=== PATIENT | female | born 1965 | race African-American/Black ===

== ENCOUNTER 2021-10-07 07:19 | Outpatient (REF) | payer MEDICAID, SELFPAY ==
--- NOTE | ~2021-10-07 | XR_ITS ---
EXAMINATION: XR HAND, RIGHT CLINICAL INFORMATION: Pain in right hand. COMPARISON: None TECHNIQUE: PA, lateral, and oblique views of the right hand. FINDINGS: There is loss of PIP and DIP joint space with periapical spurring 1st metacarpophalangeal joint. No bony erosive changes. The soft tissues are normal. XR/XR hand RT min 3V IMPRESSION: Mild early degenerative changes. No visible acute fracture or dislocation seen.
== END 2021-10-07 07:20 | disposition home or self-care (01) ==
LOC: HO.HOSX 07:19
PROVIDERS: Visit Provider Physician Assistant
DX: M85.641 Other cyst of bone, right hand (principal)
CPT/HCPCS: 20600; 73130; 99202

== ENCOUNTER 2021-11-05 09:59 | Day surgery (SDC) | payer MEDICAID, SELFPAY ==
[2021-11-05 10:19] VITALS: BP 143/81; PULSE 75; RESP 17; TEMP 37.2; O2SAT 97; BMI 41.5
[2021-11-05 10:20] VITALS: BMI 41.5
--- NOTE | 2021-11-05 10:57 | MHC.SHP ---
Pre-Procedural Eval Section A Date of Service: 11/05/21 The patient is an INPATIENT: No Changes since office visit: No Cold of Flu in the past 2 weeks, No New Medical Problems, No Changes in Medication and No Patient answered all questions The History & Physical has been completed within 30 days and I have reviewed it.: Yes Section B Chief Complaint: right thumb mass Allergies: Allergies Allergy/AdvReac Type Severity Reaction Status Date / Time No Known Allergies Allergy Unverified 04/24/20 16:20 Plan I have reviewed the history and physical and performed a pertinent physical examination on my patient. No changes have occurred unless specified.
--- NOTE | 2021-11-05 10:58 | P.OP_ITS ---
Operative Note Operative Note Date of Service: 11/05/21 Narrative: Operative Note Preop diagnosis: 1. Right thumb mass over A1 ld Postop diagnosis: 1. Same Procedure: 1. Right thumb mass excision Surgeon: Kathi Mcdonald MD Anesthesia: local block using 1% lidocaine with epinephrine EBL: Less than 5 mL Tourniquet time: None Findings: A fairly large retinacular cyst was found sitting on the A1 ld. It was filled with clear viscous fluid consistent with a ganglion. Specimens: Right thumb retinacular cyst and viscous fluid Complications: None Disposition: Brought to recovery room in stable condition Plan: Follow-up for 10-14 days for wound check and suture removal Indications: The patient is 56 years old, with a right thumb mass over the A1 ld. The risks and benefits of operative treatment including but not limited to risk of damage to blood vessels, nerves, tendons, infection, persistent pain, persistent symptoms, recurrence or possible need for additional surgery were discussed with the patient and the patient wishes to proceed with surgery. Procedure: Once consent was obtained a local block was performed in the preop area using a combination of 1% lidocaine with epinephrine. The patient was then brought back to the operating suite and placed on the operative table in supine position. A tourniquet was applied to the proximal aspect of the right upper extremity and the limb was prepped and draped in a standard surgical fashion. Once assured that we had a good block, a 1.5 cm oblique incision was made centered over the A1 ld of the right thumb . The incision was made through the skin to the subcutaneous tissues using a #15 blade. Careful dissection was made down to the level of the A1 ld using tenotomy scissors, with care being taken to protect the nearby neurovascular structures. A fairly large retinacular cyst was noted to be sitting on top of the A1 ld. It measured approximately 8 mm in diameter. Soft tissues were carefully dissected off of the cystic mass using tenotomy scissors. The cyst was then dissected off of the A1 ld at which point we open the cyst, and it was full of clear viscous fluid consistent with a ganglion. The cyst was removed and placed on the back table along with the cystic fluid, all to be sent to pathology. In preop hold the patient had also complained of locking and catching in that thumb. A1 ld was noted to be thickened. A longitudinal incision was made in the A1 ld 1st using a #15 blade, then using tenotomy scissors under direct visualization. Following our A1 ld release, we no longer saw any locking or catching of the digit with flexion and extension. Once satisfied with our mass excision and A1 ld release the wound was copiously irrigated with normal saline and hemostasis was obtained with a brief period of local pressure. The skin edges were reapproximated with some 5.0 nylon suture material and a sterile dressing was applied. The patient appears to have tolerated the procedure well and with no compl ications. All digits were well vascularized at the conclusion of the case.
[2021-11-05 11:36] VITALS: BP 164/87; PULSE 63; RESP 16; TEMP 36.6; O2SAT 96
== END 2021-11-05 11:49 | disposition home or self-care (01) ==
PROVIDERS: PCP Internal Medicine; Visit Provider Orthopaedic Surgery
PROC: (CPT 26160; principal; 2021-11-05 13:20)
DX: M67.441 Ganglion, right hand (principal); M24.841 Other specific joint derangements of right hand, not elsewhere classified
CPT/HCPCS: 26160; 26055; 88304; 88305; J0171

== ENCOUNTER 2021-11-18 10:47 | Outpatient (REF) | payer MEDICAID, SELFPAY ==
--- NOTE | ~2021-11-18 | MM_ITS ---
EXAMINATION: MM SCREENING DIGITAL BREAST TOMOSYNTHESIS, BILATERAL CLINICAL INFORMATION: Screening. Asymptomatic. The lifetime risk of breast cancer based on the Tyrer-Cuzick Model is 6%. COMPARISON: Mammography: 01/18/2018, 01/14/2017, 10/04/2014 TECHNIQUE: Digital breast tomosynthesis is performed in both the craniocaudal and mediolateral oblique views along with computer-aided detection (CAD). Synthesized 2D images are generated from the tomosynthesis. Additional bilateral MLO views are provided. FINDINGS: The breasts are almost entirely fatty (ACR BI-RADS breast composition Category a). There are no significant masses, abnormal calcifications, or other abnormalities. Parenchymal pattern is similar to prior studies. Background stromal and fibroglandular densities are stable. There are stable intramammary nodes in the bilateral upper outer quadrant similar to prior studies. The skin contours are smooth. MM/MM tomosynthesis screening BI IMPRESSION: No mammographic evidence of malignancy. ASSESSMENT: BI-RADS 2: Benign RECOMMENDATION: Routine annual mammography screening. This patient's information was entered into a reminder system with a target due date for their next mammogram.
== END 2021-11-18 10:48 | disposition home or self-care (01) ==
LOC: HO.MAMMO 10:47
PROVIDERS: Visit Provider Internal Medicine
DX: Z47.89 Encounter for other orthopedic aftercare (principal); Z12.31 Encounter for screening mammogram for malignant neoplasm of breast
CPT/HCPCS: 77063; 77067; 99212

== ENCOUNTER → 2023-02-24 16:00 | Outpatient (BNV) | payer MEDICAID, SELFPAY | PROVIDERS: PCP Internal Medicine; Visit Provider Radiology Diagnostic Radiology | DX: Z12.31 Encounter for screening mammogram for malignant neoplasm of breast (principal) | CPT/HCPCS: 77063; 77067 ==

== ENCOUNTER 2023-02-24 16:21 | Outpatient (REF) | payer MEDICAID, SELFPAY ==
--- NOTE | ~2023-02-24 | MM_ITS ---
EXAMINATION: MM SCREENING DIGITAL BREAST TOMOSYNTHESIS, BILATERAL CLINICAL INFORMATION: Screening. Asymptomatic. The lifetime risk of breast cancer based on the Tyrer-Cuzick Model is 4.5%. COMPARISON: Mammography: This study is compared with prior exams dating back to 2015. TECHNIQUE: Digital breast tomosynthesis is performed in both the craniocaudal and mediolateral oblique views along with computer-aided detection (CAD). Synthesized 2D images are generated from the tomosynthesis. FINDINGS: The breasts are almost entirely fatty (ACR BI-RADS breast composition Category a). There are no significant masses, abnormal calcifications, or other abnormalities. MM/MM tomosynthesis screening BI IMPRESSION: No mammographic evidence of malignancy. ASSESSMENT: BI-RADS BI-RADS 1 - Negative RECOMMENDATION: Routine annual mammography screening. 1 year F/U This examination should not preclude the clinical evaluation of a suspicious palpable abnormality. This patient's information was entered into a reminder system with a target due date for their next mammogram.
== END 2023-02-24 16:22 | disposition home or self-care (01) ==
LOC: HO.MAMMO 16:21
PROVIDERS: PCP Internal Medicine; Visit Provider Internal Medicine
DX: Z12.31 Encounter for screening mammogram for malignant neoplasm of breast (principal)
CPT/HCPCS: 77063; 77067

== ENCOUNTER 2023-03-22 15:42 | Outpatient (REF) | payer MEDICAID, SELFPAY ==
[2023-03-23 18:13] LABS: CT PCR NOT DETECTED (Not Detect.); NG PCR NOT DETECTED (Not Detect.)
[2023-03-28 20:19] LABS: HPV 16 RNA NOT DETECTED (NOT DETECTED); HPV mRNA E6/E7 rflx Detected (Not Detected)
== END 2023-03-22 15:43 | disposition home or self-care (01) ==
LOC: HO.HHCL 15:42
PROVIDERS: Visit Provider Advanced Practice Midwife
DX: Z12.4 Encounter for screening for malignant neoplasm of cervix (principal); Z11.51 Encounter for screening for human papillomavirus (HPV); Z11.3 Encounter for screening for infections with a predominantly sexual mode of transmission
CPT/HCPCS: 0353U; 87624; 87625; 88142

== ENCOUNTER 2023-05-05 14:35 | Outpatient (REF) | payer MEDICAID, SELFPAY ==
[2023-05-05 16:11] LABS: Estimated Average Glucose 120 mg/dL; Hemoglobin A1c % 5.8 % (<6.0)
[2023-05-05 16:36] LABS: Alanine Aminotransferase 19 U/L (0-31); Albumin Level 4.3 g/dL (3.5-5.0); Alkaline Phosphatase 78 U/L (39-117); Anion Gap 15 (12-20); Aspartate Amino Transferase 19 U/L (5-31); Bilirubin Direct 0.2 mg/dL (0.0-0.5); Bilirubin Total 0.9 mg/dL (0.0-1.0); Blood Urea Nitrogen 10 mg/dL (9-16); Calcium 9.8 mg/dL (8.4-10.2); Carbon Dioxide 25 mmol/L (22-29); Chloride 106 mmol/L (96-108); Estimated Glomerular Filt Rate > 60; Glucose Random 93 mg/dL (60-115); Potassium 4.1 mmol/L (3.3-5.1); Sodium 142 mmol/L (135-145); Total Protein 7.8 g/dL (6.5-8.0)
[2023-05-05 16:50] LABS: TSH reflex Free T4 1.78 uIU/mL (0.32-4.0)
== END 2023-05-05 14:36 | disposition home or self-care (01) ==
LOC: HO.HHCL 14:35
PROVIDERS: Visit Provider Family Medicine
DX: I10 Essential (primary) hypertension (principal); R35.0 Frequency of micturition
CPT/HCPCS: 36415; 80048; 80076; 83036; 84443

== ENCOUNTER 2023-06-03 15:33 | Outpatient (REF) | payer MEDICAID, SELFPAY ==
[2023-06-03 18:15] LABS: C Reactive Protein 1.45 mg/dL (< or = 0.50)
[2023-06-03 18:16] LABS: Rheumatoid Factor < 13.0 IU/mL (<15.0)
[2023-06-03 18:33] LABS: Erythrocyte Sedimentation Rate 18 MM/HR (0-20)
[2023-06-05 11:18] LABS: Cyclic Citrullinated Peptide <16 UNITS
== END 2023-06-03 15:34 | disposition home or self-care (01) ==
LOC: HO.CHCLDS 15:33
PROVIDERS: Visit Provider Internal Medicine
DX: M25.50 Pain in unspecified joint (principal); G89.29 Other chronic pain
CPT/HCPCS: 36415; 85652; 86140; 86200; 86431

== ENCOUNTER 2023-06-29 12:31 | Outpatient (REF) | payer MEDICAID, SELFPAY | END 2023-06-29 12:32 | disposition home or self-care (01) | LOC: HO.LNP 12:31 | PROVIDERS: PCP Internal Medicine; Visit Provider Obstetrics & Gynecology | DX: A63.0 Anogenital (venereal) warts (principal); B97.7 Papillomavirus as the cause of diseases classified elsewhere | CPT/HCPCS: 57454; 88305 ==

== ENCOUNTER 2023-06-29 12:31 | Outpatient (AMB) | payer MEDICAID, SELFPAY ==
--- NOTE | 2023-06-29 12:40 | A.OFFVIS_ITS ---
Intake Vital Signs 06/29/23 12:44 Height 5 ft 3 in Weight 267 lb BMI 47.3 Intake Visit Reasons: New patient Colpo consult [employer] Department Manager Required: No Information Interpreted: non-clinical & clinical Human Resources Leader: Human Resources Leader Present (Aidyn) Allergies No Known Allergies Allergy (Verified 06/29/23 12:44) Is last menstrual period known: No Post menopausal: Yes Patient : No HPI HPI Comments History of Present Illness Details Presenting referred for abnormal Pap smear showing normal Pap with HPV E6/E7 positive, HPV 16/18/45 negative Last co testing was in 11/22 ascus rule out squamous intraepithelial lesion with HPV negative, this was preceded by Pap smear in 2013 showing ascus/HPV negative PFSH Medical History Arthritis Insomnia High blood pressure Surgical History Hx of wisdom tooth extraction Hx of tubal ligation Hx of hand surgery Family History Family/Other Cancer Patient Tobacco Use Status: Never used Tobacco Current occupational status: employed 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 Reproductive History Menstrual Age of Menarche: 13 control method: permanent sterilization Total pregnancies: 5 Full term: 5 Number of Living Children: 5 Date of last pap smear: 03/22/23 (+HPV) History of abnormal pap smear: Yes (2016) Date of Mammogram: 02/24/23 Review of Systems Const All systems reviewed & are unremarkable except as noted in HPI and below Physical Exam Vital Signs: BMI result Body Mass Index 47.3 General: Yes no CVA tenderness External Female Exam: normal external appearance and normal appearance of the urethra Speculum Exam - Vagina: normal appearance of the vagina, normal palpation, no lesions and no masses Speculum Exam - Cervix: normal appearance of the cervix, normal palpation, no lesions, no masses and nontender Bimanual exam- vagina & uterus: normal bimanual exam, normal palpation, uterine size normal, normal palpation, uterine shape normal, No Cervical tenderness present and non-tender Bimanual Exam- Adnexa, other: normal adnexae Back/Spine/Pelvis Back: no CVA tenderness Office Procedures Colposcopy Before the procedure was started discussed with the patient the procedure, alternatives & all the risks associated with the procedure (bleeding, infection, injury to vagina, bladder, vessels, possible need for transfusion with all its risks) then patient signed the consent Pap smear = negative/HPV positive Speculum inserted, acetic acid used Colposcopy done Transformation zone seen, acetowhite lesions identified at 5+7+9+11+12 o?clock, cervical biopsies taken from 5+7+9+11+12 o?clock, ECC done afterwards. Vaginoscopy of the upper vagina showed no evidence of any aceto-white lesions Monsel solution used for hemostasis. The patient tolerated well . At the end the patient was instructed to call if temp>100.4, abdominal pain, n/v, bleeding; The patient was given the following instructions: nothing per vagina, no intercourse or bath tub use. All questions answered the patient verbalized understanding. Instructed the patient to make an appointment in 2 weeks for follow-up This note was generated with a voice recognition program. Some errors may have been overlooked during the review of this note. Sometimes these errors may affect the content or meaning of a given sentence. [id number] of cervix including upper vagina with biopsy and ECC Procedure code (CPT) selection complete Assessment & Plan Assessment & Plan (1) HPV in female: Comment: 11/22 ascus rule out intraepithelial lesion/HPV negative 2013 ascus HPV negative Code(s): B97.7 - Papillomavirus as the cause of diseases classified elsewhere Plan: Discussed with the patient the result of her cotest results, its significance, risk of progression, persistence, and regression. the false positive/negative rate being a screening test, the need for diagnostic test -colposcopy, biopsy, endocervical curettage. Colposcopy done, see procedure note. The patient verbalized understanding and agreed with the plan, all questions answered. Orders: Orders AMB Colposcopy Today B97.7 - Papillomavirus as the cause of diseases classified elsewhere Coding Level of Care Code New Pt Level 3 (51043) Procedure Only Diagnoses HPV in female B97.7 CPT Codes Colposcopy - CPT: 40824-Snrlmohtj of cervix including upper vagina with biopsy and ECC ([id number])
[2023-06-29 12:44] VITALS: BMI 47.3
== END 2023-06-29 13:15 | disposition home or self-care (01) ==
LOC: HO.HWS 12:31
PROVIDERS: PCP Internal Medicine; Visit Provider Obstetrics & Gynecology
DX: R87.810 Cervical high risk human papillomavirus (HPV) DNA test positive (principal)
CPT/HCPCS: 57454

== ENCOUNTER 2023-08-11 14:59 | Outpatient (AMB) | payer MEDICAID, SELFPAY ==
--- NOTE | 2023-08-11 15:05 | MHC.OFFVIS ---
Intake Vital Signs 08/11/23 15:09 Height 5 ft 3 in Weight 265 lb 10.512 oz BMI 47.1 BP 128/70 Blood Pressure Location Rt radial Pulse 63 Pulse Source Pulse Oximeter Pulse Oximetry (%) 99 Oxygen Delivery Method Room Air Intake Visit Reasons: Chronic joint Pain Intake Note: New patient referred by [facility], presents today for chronic joint and elevated inflammatory markers. 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 Reports PT did not help, left me hurting so bad . Acupuncture did not work. Taking oral pain killers. Ibuprofen causing flank pain. Locks Inspector Required: No Accompanied by: Self / Same As Patient Allergies No Known Allergies Allergy (Verified 08/11/23 15:07) HPI HPI Comments History of Present Illness Details Ms. Kiarra Martin, is a 57-year-old female was referred by her primary care for evaluation of joint pain with mildly elevated CRP, negative rheumatoid factor negative CCP and ESR. The patient reports that she has had joint pain for the last 10 years. The pain is more dominant in her neck, shoulders, knees, and ankles. She reports that her hands feel swollen in the mornings, but denies joint swelling tenderness and redness. The swelling in her hands usually resolves by the end of the day or as the day progresses but it never lasts more than 2 days. She reports that she also has a lot of tension in her neck. Her joint pain is his helped by Motrin which she takes daily but sometimes is afraid to take it because it bothers her stomach. She has been taking Motrin for years. She has had a steroid injection in her left 3rd flexor tendon for trigger finger and that has been resolved for years now. She has gained about 40 lb in recent years. She reports having insomnia from over thinking which prevents her from going to sleep. She reports that she feels anxious and highly stressed. She also reports that she was seeing a therapist but is not currently seeing a therapist. She takes Ambien occasionally to help with sleep, melatonin was not effective. She had a colonoscopy 49 years old, denies personal history of cancer, is prediabetic and is receiving eye drops for cataract. With regards connective tissue disease and inflammatory process, patient denies Raynaud's phenomenon, butterfly rash on face or other rashes; denies photosensitivity - getting sick or developing a rash from being out in the sun; denies blood or froth in urine; patient denies hx of SOB, chest pain. Patient denies hx of Carditis or Pleuritis. Patient denies any history of DVT/PE. The patient reports never have had to take aspirin or a blood thinner during the successful pregnancies. Denies fevers, excessive fatigue, unexplained weight-loss, Denies: thinning hair or hair loss, hx of rashes; Denies: dry, itchy eyes, red burning eyes needing steroids to treat; dry mouth, mouth sores or ulcers; nose bleed; ringing in the ear, Denies abdominal pain, blood or mucous in stool; nausea, vomiting , difficulty swallowing, heartburn. Denies morning stiffness lasting more than 40 mins. [facility] Medical History (Updated 08/12/23 @ 14:23 by JAKE Adame) Chronic ankle pain, bilateral Bilateral hand pain Knee pain, bilateral Muscle tension pain Muscle tightness Pain in joint involving multiple sites Elevated C-reactive protein (CRP) Chronic joint pain Arthritis Insomnia High blood pressure Surgical History Hx of wisdom tooth extraction Hx of tubal ligation Hx of hand surgery Family History Family/Other Cancer Other Arthritis Social History (Updated 08/11/23 @ 15:12 by TIFF Fernandez) Household Members: Family Alcohol intake: never Patient Tobacco Use Status: Never used Tobacco Current occupational status: employed 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 External ear normal, canal clear and tympanic membrane normal. NOSE/SINUS:? Airflow through both nares, no nasal discharge, no bleeding THROAT:? Oral mucosa moist, no ulcerations NECK:? No thyromegaly or masses, no adenopathy, trachea midline. HEART:? Regular rhythm, S1-S2 heard, no murmurs, rubs or gallops. LUNG:? Clear to percussion and auscultation ABD:? Normal bowel sounds, no organomegaly, masses or tenderness. EXTREMITIES:? No edema, no calf tenderness, normal peripheral pulses. NEURO:? Oriented and alert x3.? No focal weakness.? Reflexes symmetric.? Gait normal. SKIN:? There are no skin lesions evident. No objective signs of Raynaud's phenomenon. JOINT EXAM: ?? Cervical Spine:.? Full range of motion without pain; no tenderness. Thoracic Spine:.? No scoliosis.? No tenderness on palpation. Lumbar Spine:.? Alignment normal.? Full range of motion without pain, no tenderness. Chest Wall:.? No tenderness, swelling, increased warmth or erythema. Hands:.? Normal pain-free range of motion without tenderness, swelling, increased warmth or erythema. Able to make a full fist and has a good whiting can worker strength. Thicken flexor tendon left 3rd with folding. Patient reports the skin deformity was a result of the steroid injection Wrists:.? Normal pain-free range of motion without tenderness, swelling, increased warmth or erythema. proximal enlarged fatty area on forearm, likely fatty deposits..family trait per patient Elbows:. Normal pain-free range of motion without tenderness, swelling, increased warmth or erythema. tenderpoints to bilateral lateral epicondyles Shoulders:.?? RIGHT: Full range of motion without pain. No tenderness, weakness, swelling, increased warmth or erythema. LEFT: Decreased range of motion with pain in shoulder joint, +empty can test.. some tenderness to palpation at shoulder joint and weakness (2/5), but no swelling, increased warmth or erythema. Patient states her shoulder temporarily popped out of joint this morning when she was putting on her her blouse overhead. Hips:.? Full range of motion without pain. Hip bursa:.? No tenderness. Knees:.?? Normal pain-free range of motion without tenderness, swelling, increased warmth or erythema.? There is no effusion or crepitation Ankles:.? Normal pain-free range of motion swelling, increased warmth or erythema. tenderness to palpation Feet:.? Normal pain-free range of motion without swelling, increased warmth or erythema. tenderness with squeeze test across MTP Tender points:? No Tenderness to digital palpation at the occiput, second rib, lateral epicondyle, knees. No tenderness to greater trochanter and gluteal area bilaterally. Results Reviewed Results Reviewed: 10/07/2021 EXAMINATION: XR HAND, RIGHT CLINICAL INFORMATION: Pain in right hand. COMPARISON: None TECHNIQUE: PA, lateral, and oblique views of the right hand. FINDINGS: There is loss of PIP and DIP joint space with periapical spurring 1st metacarpophalangeal joint. No bony erosive changes. The soft tissues are normal. XR/XR hand RT min 3V IMPRESSION: Mild early degenerative changes. No visible acute fracture or dislocation seen. Assessment & Plan Assessment & Plan (1) Pain in joint involving multiple sites: Code(s): M25.50 - Pain in unspecified joint (2) Elevated C-reactive protein (CRP): Code(s): R79.82 - Elevated C-reactive protein (CRP) (3) Muscle tension pain: Code(s): M79.10 - Myalgia, unspecified site (4) Muscle tightness: Code(s): M62.89 - Other specified disorders of muscle (5) Knee pain, bilateral: Code(s): M25.561 - Pain in right knee; M25.562 - Pain in left knee Qualifiers: Chronicity: chronic Qualified Code(s): M25.561 - Pain in right knee; M25.562 - Pain in left knee; G89.29 - Other chronic pain (6) Bilateral hand pain: Code(s): M79.641 - Pain in right hand; M79.642 - Pain in left hand (7) Chronic ankle pain, bilateral: Code(s): M25.571 - Pain in right ankle and joints of right foot; M25.572 - Pain in left ankle and joints of left foot; G89.29 - Other chronic pain (8) Left shoulder pain: Code(s): M25.512 - Pain in left shoulder Qualifiers: Chronicity: chronic Qualified Code(s): M25.512 - Pain in left shoulder; G89.29 - Other chronic pain (9) Insomnia secondary to situational depression: Code(s): F43.21 - Adjustment disorder with depressed mood; F51.05 - Insomnia due to other mental disorder Plan #Multiple joint pain (Knees, Hands,Ankles)/elevated CRP: Ms. Conroy 57-year-old female was evaluated today for multiple joint pain and elevated CRP. She has had negative serology for rheumatoid factor, CCP, ESR and JANKI. After careful initial evaluation and review of medical records, diagnostics, and physical examination, I do not think there is a connective tissue disease or inflammatory process that underlies her symptoms. It is reasonable to assess that the elevated CRP can be attributed to obesity. The patient does have onset of osteoarthritis, which also is exacerbated by her increased weight gain. Patient reports that her hands can feel puffy (see HPI) but denies joint swelling, redness, tenderness and warmth to the joints. A October 2021 x-rays that show early osteoarthritis to right hand. I will obtain rheumatology panel for further evaluation and x-rays to assess the extent of her osteoarthritis. Patient will continue with Motrin as she finds this effective for her joint pain. She knows to take it with food. 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 I have recommended that she adopt healthy diet and increase her activity level with mild exercise and mild muscle strengthening. #Muscle/Tension/Tight: On examination patient has severe muscle tightness and tension to her neck and her shoulders such that is hard to the touch and she finds it to be very tender. I think she can benefit from massage sessions. She did state that she has had PT for her left shoulder and the therapist did recommend that she gets massage to help relax her muscles. I will give her a prescription for massage session. #Left Shoulder Pain:Patient has an appointment to see Orthopedic for her shoulder. She reports that she has had a prior cortisone injection from Orthopedics for the shoulder. # Insomnia/Depression: It is clear that the patient she has depression and anxiety which is affecting her sleep. She was very teary-eyed during examination. She finds that she cannot go to sleep because her mind is in overdrive. She was prescribed zolpidem and she still trying to figure out the best time to take it so it can be effective for her. She has had therapy in the past which she states did help her but she has not seen a therapist in over a year she had a falling out with her therapist I have encouraged her to talk with her PCP about a recommendation and referral for therapist. I have made some recommendations such as herbal teas such as chamomile Tea, ambient noises, and personal affirmations. Patient agrees to try these. A 1 month follow-up is reasonable to discuss findings. If there if there is any need for an earlier follow-up based on diagnostics, I will contact the patient. I have spent 60 minutes reviewing chart and historical data, evaluating patient, and documenting. Orders: Orders Erythrocyte Sedimentation Rate 08/11/23 M25.50 - Pain in unspecified joint, R79.82 - Elevated C-reactive protein (CRP) Comprehensive Met. Panel 08/11/23 M25.50 - Pain in unspecified joint, R79.82 - Elevated C-reactive protein (CRP) XR hand LT min 3V 08/11/23 M25.50 - Pain in unspecified joint, R79.82 - Elevated C-reactive protein (CRP) XR knee RT 3V 08/11/23 M25.50 - Pain in unspecified joint, R79.82 - Elevated C-reactive protein (CRP) C Reactive Protein 08/11/23 M25.50 - Pain in unspecified joint, R79.82 - Elevated C-reactive protein (CRP) T Spot TB 08/11/23 M25.50 - Pain in unspecified joint, R79.82 - Elevated C-reactive protein (CRP) Hepatitis A,B,C Profile 08/11/23 M25.50 - Pain in unspecified joint, R79.82 - Elevated C-reactive protein (CRP) Complete Blood Count Auto Diff 08/11/23 M25.50 - Pain in unspecified joint, R79.82 - Elevated C-reactive protein (CRP) Uric Acid 08/11/23 M25.50 - Pain in unspecified joint, R79.82 - Elevated C-reactive protein (CRP) HLA B27 08/11/23 M25.50 - Pain in unspecified joint, R79.82 - Elevated C-reactive protein (CRP) XR hand RT min 3V 08/11/23 M25.50 - Pain in unspecified joint, R79.82 - Elevated C-reactive protein (CRP) XR knee LT 3V 08/11/23 M25.50 - Pain in unspecified joint, R79.82 - Elevated C-reactive protein (CRP) XR foot RT min 3V 08/11/23 M25.50 - Pain in unspecified joint, R79.82 - Elevated C-reactive protein (CRP) XR foot LT min 3V 08/11/23 M25.50 - Pain in unspecified joint, R79.82 - Elevated C-reactive protein (CRP) Referrals Massage Therapy Referral M62.89 - Other specified disorders of muscle, M79.10 - Myalgia, unspecified site Coding Level of Care Code New Pt Level 5 (42303) Diagnoses Pain in joint involving multiple sites M25.50 Elevated C-reactive protein (CRP) R79.82 Muscle tension pain M79.10 Muscle tightness M62.89 Chronic pain of both knees M25.561; M25.562; G89.29 Chronicity: chronic Bilateral hand pain M79.641; M79.642 Chronic ankle pain, bilateral M25.571; M25.572; G89.29 Chronic left shoulder pain M25.512; G89.29 Chronicity: chronic Insomnia secondary to situational depression F43.21; F51.05
[2023-08-11 15:09] VITALS: BP 128/70; PULSE 63; O2SAT 99; BMI 47.1
== END 2023-08-11 16:08 | disposition home or self-care (01) ==
PROVIDERS: PCP Internal Medicine; Visit Provider Nurse Practitioner Family
DX: M25.59 Pain in other specified joint (principal); R79.82 Elevated C-reactive protein (CRP); M62.89 Other specified disorders of muscle; M25.562 Pain in left knee; G89.29 Other chronic pain; M79.641 Pain in right hand; M79.642 Pain in left hand; M25.571 Pain in right ankle and joints of right foot; M25.572 Pain in left ankle and joints of left foot; M25.512 Pain in left shoulder; F43.21 Adjustment disorder with depressed mood; F51.05 Insomnia due to other mental disorder
CPT/HCPCS: 99205

== ENCOUNTER → 2023-08-11 14:59 | Outpatient (BNVA) | payer MEDICAID, SELFPAY | PROVIDERS: PCP Internal Medicine; Visit Provider Nurse Practitioner Family | DX: M25.50 Pain in unspecified joint (principal); M79.10 Myalgia, unspecified site; M62.89 Other specified disorders of muscle; M25.561 Pain in right knee; M25.562 Pain in left knee; M79.641 Pain in right hand; M79.642 Pain in left hand; M25.512 Pain in left shoulder; M25.571 Pain in right ankle and joints of right foot; M25.572 Pain in left ankle and joints of left foot; G89.29 Other chronic pain; R79.82 Elevated C-reactive protein (CRP); F43.21 Adjustment disorder with depressed mood; F51.05 Insomnia due to other mental disorder | CPT/HCPCS: 99212 ==

== ENCOUNTER 2023-08-22 14:47 | Outpatient (REF) | payer MEDICAID, SELFPAY ==
--- NOTE | ~2023-08-22 | XR_ITS ---
EXAMINATION: XR HAND, RIGHT CLINICAL INFORMATION: Elevated C-reactive protein level. COMPARISON: Radiographs dated 10/07/2021. TECHNIQUE: PA, lateral, and oblique views of the right hand. FINDINGS: Bony alignment and mineralization are normal. There is a slight ulnar minus variance. No fracture or dislocation is seen. There is mild osteoarthritic change of the first carpometacarpal joint. There is no abnormal bone erosion. The proximal and distal carpal rows are intact. No focal soft tissue swelling, gas or foreign body is seen. XR/XR hand LT min 3V IMPRESSION: 1. There is mild osteoarthritic change of the right first carpometacarpal joint. 2. No fracture or dislocation is seen. 3. There is no abnormal bone erosion. EXAMINATION: XR HAND, LEFT CLINICAL INFORMATION: Elevated C-reactive protein level. COMPARISON: None available. TECHNIQUE: PA, lateral, and oblique views of the left hand. FINDINGS: Bony alignment and mineralization are normal. There is a neutral ulnar variance. No fracture or dislocation is seen. There is mild osteoarthritic change of the interphalangeal joint of the thumb, the second distal interphalangeal joint and the first carpometacarpal joint. There is no abnormal bone erosion. The proximal and distal carpal rows are intact. There is no focal soft tissue swelling, gas or foreign body. IMPRESSION: 1. There is mild osteoarthritic change of the interphalangeal joint of the left thumb, the left second distal interphalangeal joint and the left first carpometacarpal joint. 2. No fracture or dislocation is seen. 3. There is no abnormal bone erosion.
--- NOTE | ~2023-08-22 | XR_ITS ---
EXAMINATION: XR FOOT, RIGHT CLINICAL INFORMATION: Elevated C-reactive protein level. COMPARISON: None available. TECHNIQUE: AP, lateral, and oblique views of the right foot. FINDINGS: Bony mineralization is normal. There is a mild hallux valgus and metatarsus adductus configuration. There is moderate bunion formation of the first metatarsal head. No fracture, dislocation or right ankle joint effusion is seen. Boehler's angle is normal. There are moderate posterior and plantar calcaneal spurs. There are degenerative changes of the dorsal midfoot. No focal soft tissue swelling, gas or foreign body is seen. XR/XR foot RT min 3V IMPRESSION: 1. There is moderate bunion formation of the right first metatarsal head. 2. There are moderate posterior and plantar right calcaneal spurs. 3. There are degenerative changes of the dorsal right midfoot. EXAMINATION: XR FOOT, LEFT CLINICAL INFORMATION: Elevated C-reactive protein level. COMPARISON: None available. TECHNIQUE: AP, lateral, and oblique views of the left foot. FINDINGS: Bony mineralization is normal. There is a mild hallux valgus and metatarsus adductus configuration. There is moderate bunion formation of the first metatarsal head. No fracture, dislocation or left ankle joint effusion is seen. Boehler's angle is normal. There are small posterior and moderate plantar calcaneal spurs. There are degenerative changes of the dorsal midfoot. No focal soft tissue swelling, gas or foreign body is seen. IMPRESSION: 1. There is moderate bunion formation of the left first metatarsal head. 2. There are small posterior and moderate plantar left calcaneal spurs. 3. There are degenerative changes of the dorsal left midfoot.
--- NOTE | ~2023-08-22 | XR_ITS ---
EXAMINATION: XR HAND, RIGHT CLINICAL INFORMATION: Elevated C-reactive protein level. COMPARISON: Radiographs dated 10/07/2021. TECHNIQUE: PA, lateral, and oblique views of the right hand. FINDINGS: Bony alignment and mineralization are normal. There is a slight ulnar minus variance. No fracture or dislocation is seen. There is mild osteoarthritic change of the first carpometacarpal joint. There is no abnormal bone erosion. The proximal and distal carpal rows are intact. No focal soft tissue swelling, gas or foreign body is seen. XR/XR hand RT min 3V IMPRESSION: 1. There is mild osteoarthritic change of the right first carpometacarpal joint. 2. No fracture or dislocation is seen. 3. There is no abnormal bone erosion. EXAMINATION: XR HAND, LEFT CLINICAL INFORMATION: Elevated C-reactive protein level. COMPARISON: None available. TECHNIQUE: PA, lateral, and oblique views of the left hand. FINDINGS: Bony alignment and mineralization are normal. There is a neutral ulnar variance. No fracture or dislocation is seen. There is mild osteoarthritic change of the interphalangeal joint of the thumb, the second distal interphalangeal joint and the first carpometacarpal joint. There is no abnormal bone erosion. The proximal and distal carpal rows are intact. There is no focal soft tissue swelling, gas or foreign body. IMPRESSION: 1. There is mild osteoarthritic change of the interphalangeal joint of the left thumb, the left second distal interphalangeal joint and the left first carpometacarpal joint. 2. No fracture or dislocation is seen. 3. There is no abnormal bone erosion.
--- NOTE | ~2023-08-22 | XR_ITS ---
EXAMINATION: XR FOOT, RIGHT CLINICAL INFORMATION: Elevated C-reactive protein level. COMPARISON: None available. TECHNIQUE: AP, lateral, and oblique views of the right foot. FINDINGS: Bony mineralization is normal. There is a mild hallux valgus and metatarsus adductus configuration. There is moderate bunion formation of the first metatarsal head. No fracture, dislocation or right ankle joint effusion is seen. Boehler's angle is normal. There are moderate posterior and plantar calcaneal spurs. There are degenerative changes of the dorsal midfoot. No focal soft tissue swelling, gas or foreign body is seen. XR/XR foot LT min 3V IMPRESSION: 1. There is moderate bunion formation of the right first metatarsal head. 2. There are moderate posterior and plantar right calcaneal spurs. 3. There are degenerative changes of the dorsal right midfoot. EXAMINATION: XR FOOT, LEFT CLINICAL INFORMATION: Elevated C-reactive protein level. COMPARISON: None available. TECHNIQUE: AP, lateral, and oblique views of the left foot. FINDINGS: Bony mineralization is normal. There is a mild hallux valgus and metatarsus adductus configuration. There is moderate bunion formation of the first metatarsal head. No fracture, dislocation or left ankle joint effusion is seen. Boehler's angle is normal. There are small posterior and moderate plantar calcaneal spurs. There are degenerative changes of the dorsal midfoot. No focal soft tissue swelling, gas or foreign body is seen. IMPRESSION: 1. There is moderate bunion formation of the left first metatarsal head. 2. There are small posterior and moderate plantar left calcaneal spurs. 3. There are degenerative changes of the dorsal left midfoot.
--- NOTE | ~2023-08-22 | XR_ITS ---
EXAMINATION: XR KNEE, RIGHT CLINICAL INFORMATION: Elevated C-reactive protein level. COMPARISON: Prior radiographs dated 01/11/2018. TECHNIQUE: AP, lateral and sunrise views of the right knee are submitted. FINDINGS: Bony alignment and mineralization are normal. The lateral, medial and patellofemoral joint space compartments are well-maintained. There is moderate peripheral osteophyte formation of the medial and patellofemoral compartments. No acute fracture, dislocation or joint effusion is seen. There is a Ellen-Stieda fragment seen adjacent to the medial femoral condyle, suggesting a prior MCL injury. There is no foreign body. XR/XR knee LT 3V IMPRESSION: 1. There is mild osteoarthritic change of the medial and patellofemoral joint space compartments of the right knee, with peripheral osteophyte formation. 2. No acute fracture, dislocation or joint effusion is seen. 3. A Ellen-Stieda fragment is seen adjacent to the medial femoral condyle, suggesting an old, healed MCL injury. EXAMINATION: XR KNEE, LEFT CLINICAL INFORMATION: Elevated C-reactive protein level. COMPARISON: Prior radiographs dated 04/27/2017. TECHNIQUE: AP, lateral and sunrise views of the left knee are submitted. FINDINGS: Bony alignment and mineralization are normal. The lateral, medial and patellofemoral joint space compartments are well-maintained. There is mild to moderate tricompartment peripheral osteophyte formation. No fracture, dislocation or joint effusion is seen. There is no foreign body. There is a stable 1.1 cm degenerative calcifications in the posterior soft tissues, unchanged from 04/27/2017. IMPRESSION: 1. There is mild tricompartment osteoarthritic change of the left knee, with peripheral osteophyte formation. 2. No acute fracture, dislocation joint effusion is seen.
--- NOTE | ~2023-08-22 | XR_ITS ---
EXAMINATION: XR KNEE, RIGHT CLINICAL INFORMATION: Elevated C-reactive protein level. COMPARISON: Prior radiographs dated 01/11/2018. TECHNIQUE: AP, lateral and sunrise views of the right knee are submitted. FINDINGS: Bony alignment and mineralization are normal. The lateral, medial and patellofemoral joint space compartments are well-maintained. There is moderate peripheral osteophyte formation of the medial and patellofemoral compartments. No acute fracture, dislocation or joint effusion is seen. There is a Ellen-Stieda fragment seen adjacent to the medial femoral condyle, suggesting a prior MCL injury. There is no foreign body. XR/XR knee RT 3V IMPRESSION: 1. There is mild osteoarthritic change of the medial and patellofemoral joint space compartments of the right knee, with peripheral osteophyte formation. 2. No acute fracture, dislocation or joint effusion is seen. 3. A Ellen-Stieda fragment is seen adjacent to the medial femoral condyle, suggesting an old, healed MCL injury. EXAMINATION: XR KNEE, LEFT CLINICAL INFORMATION: Elevated C-reactive protein level. COMPARISON: Prior radiographs dated 04/27/2017. TECHNIQUE: AP, lateral and sunrise views of the left knee are submitted. FINDINGS: Bony alignment and mineralization are normal. The lateral, medial and patellofemoral joint space compartments are well-maintained. There is mild to moderate tricompartment peripheral osteophyte formation. No fracture, dislocation or joint effusion is seen. There is no foreign body. There is a stable 1.1 cm degenerative calcifications in the posterior soft tissues, unchanged from 04/27/2017. IMPRESSION: 1. There is mild tricompartment osteoarthritic change of the left knee, with peripheral osteophyte formation. 2. No acute fracture, dislocation joint effusion is seen.
[2023-08-22 16:00] LABS: MANUAL DIFF FLAG NO
[2023-08-22 16:05] LABS: Basophils Percent Auto 0.3 % (0-2); Eosinophils Absolute Auto 0.1 X10*3/uL (0.0-0.4); Eosinophils Percent Auto 1.9 % (0-4); Hematocrit 42.6 % (37.0-47.0); Hemoglobin 14.3 g/dl (12.0-16.0); Imm Gran Abs Auto 0.01 X10*3/uL (0.00-0.03); Imm Gran Pct Auto 0.1 % (0.0-0.4); Lymphocytes Absolute Auto 2.6 X10*3/uL (1.2-4.9); Lymphocytes Percent Auto 39.2 % (20-40); Mean Corpuscular HGB Conc 33.6 g/dl (31.0-35.0); Mean Corpuscular Hemoglobin 29.1 pg (27.0-33.0); Mean Corpuscular Volume 86.8 fL (80.0-98.0); Mean Platelet Volume 9.2 fL (9.4-12.3); Monocytes Absolute Auto 0.3 X10*3/uL (0.1-1.2); Monocytes Percent Auto 4.9 % (2-11); Neutrophils Absolute Auto 3.6 x10*3/uL (2.0-8.3); Neutrophils Percent Auto 53.6 % (45-73); Platelet Count 291 X10*3/uL (160-400); Red Blood Count 4.91 X10*6/uL (4.20-5.50); Red Cell Distribution Width 14.6 % (11.0-16.0); White Blood Count 6.7 X10*3/uL (4.8-10.8)
[2023-08-22 16:13] LABS: Alanine Aminotransferase 17 U/L (0-31); Albumin Level 4.1 g/dL (3.5-5.0); Alkaline Phosphatase 73 U/L (39-117); Anion Gap 11 (12-20); Aspartate Amino Transferase 19 U/L (5-31); Bilirubin Total 0.7 mg/dL (0.0-1.0); Blood Urea Nitrogen 13 mg/dL (9-16); C Reactive Protein 0.95 mg/dL (< or = 0.50); Calcium 9.8 mg/dL (8.4-10.2); Carbon Dioxide 29 mmol/L (22-29); Chloride 106 mmol/L (96-108); Estimated Glomerular Filt Rate > 60; Glucose Random 116 mg/dL (60-115); Potassium 3.9 mmol/L (3.3-5.1); Sodium 142 mmol/L (135-145); Total Protein 7.8 g/dL (6.5-8.0); Uric Acid 6.9 mg/dL (2.4-5.7)
[2023-08-22 16:43] LABS: Erythrocyte Sedimentation Rate 7 MM/HR (0-20)
[2023-08-23 08:51] LABS: HBS Num1 134.62 mIU/mL (0-7.99); HBc Num1 0.09 S/CO (0.00-0.79); HBsAGNum1 0.26 S/CO (0.00-0.99); Hepatitis A Antibody IgM 0.15 Index (0-0.79); Hepatitis B Core Antibody Nonreactive (Nonreactive); Hepatitis B Surface Antigen Negative (Negative); ~HepC Num1 0.16 S/CO (0.00-0.79); ~Hepatitis A Antibody IgM Nonreactive (Nonreactive); ~Hepatitis B Surface Antibody REACTIVE (Nonreactive); ~Hepatitis C Antibody Nonreactive (Nonreactive)
[2023-08-25 07:38] LABS: TS Negative Control Passed; TS Panel A 0; TS Panel B 0; TS Positive Control Passed; TSpotTB Negative (Negative)
[2023-08-26 12:04] LABS: HLA B27 Negative (Negative)
== END 2023-08-22 14:48 | disposition home or self-care (01) ==
LOC: HO.XRAY 14:47
PROVIDERS: Visit Provider Nurse Practitioner Family
DX: R79.82 Elevated C-reactive protein (CRP) (principal); M25.50 Pain in unspecified joint; B97.7 Papillomavirus as the cause of diseases classified elsewhere; Z71.2 Person consulting for explanation of examination or test findings
CPT/HCPCS: 36415; 73130; 73562; 73630; 80053; 84550; 85025; 85652; 86140; 86481; 86704; 86706; 86709; 86803; 86812; 87340; 99212

== ENCOUNTER 2023-08-22 14:54 | Outpatient (AMB) | payer MEDICAID, SELFPAY ==
--- NOTE | 2023-08-22 14:56 | A.OFFVIS_ITS ---
Intake Vital Signs 08/22/23 14:57 Height 5 ft 3 in BP 126/80 Intake Visit Reasons: colpo results Allergies No Known Allergies Allergy (Verified 08/22/23 14:59) HPI HPI Comments History of Present Illness Details Presenting post colpo for follow-up. The patient is doing well with no complaints. The pathology showed the following: A. Endocervix, curettage: Scant superficial strips of endocervical epithelium within normal limits. B. Cervix, 2 o'clock, biopsy: - Inflamed squamous mucosa with reactive changes. - No endocervical epithelium identified. C. Cervix, 5 o'clock, biopsy: - Squamous epithelium within normal limi ts. - No endocervical epithelium identified. D. Cervix, 7 o'clock, biopsy: - Squamous epithelium within normal limi ts. - No endocervical epithelium identified. E. Cervix, 9 o'clock, biopsy: - Squamous epithelium within normal limi ts. - No endocervical epithelium identified. F. Cervix, 11 o'clock, biopsy: Inflamed squamous and endocervical mucosa with reactive changes PFSH Medical History Chronic ankle pain, bilateral Bilateral hand pain Knee pain, bilateral Muscle tension pain Muscle tightness Pain in joint involving multiple sites Elevated C-reactive protein (CRP) Chronic joint pain Arthritis Insomnia High blood pressure Surgical History Hx of wisdom tooth extraction Hx of tubal ligation Hx of hand surgery Family History Family/Other Cancer Other Arthritis Social History Household Members: Family Alcohol intake: never Patient Tobacco Use Status: Never used Tobacco Current occupational status: employed 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 Discussed with the patient the sensitivity specificity, positive and negative predictive value in detecting cervical cancer in addition discussed the regression, persistence and progression rates. Recommended co-testing in 12 months, if cytology and or HPV are abnormal will proceed was colposcopy biopsy and endocervical curettage. Instructions given to the patient to schedule a co test appointment in 1 year. All questions answered the patient verbalized understanding. Coding Level of Care Code Est Pt Level 3 (22590) Diagnoses HPV in female B97.7
[2023-08-22 14:57] VITALS: BP 126/80
== END 2023-08-22 15:09 | disposition home or self-care (01) ==
LOC: HO.HWS 14:54
PROVIDERS: PCP Internal Medicine; Referring Provider Internal Medicine; Visit Provider Obstetrics & Gynecology
DX: R87.810 Cervical high risk human papillomavirus (HPV) DNA test positive (principal)
CPT/HCPCS: 99213

== ENCOUNTER 2023-09-15 14:22 | Outpatient (AMB) | payer MEDICAID, SELFPAY ==
--- NOTE | 2023-09-15 14:30 | MHC.OFFVIS ---
Intake Vital Signs 09/15/23 14:35 Height 5 ft 3 in Weight 261 lb 3.964 oz BMI 46.3 BP 132/76 Blood Pressure Location Rt brachial Position Sitting Pulse 83 Pulse Source Pulse Oximeter Temp 97.7 F Temp Source Skin Pulse Oximetry (%) 97 Oxygen Delivery Method Room Air Intake Visit Reasons: Chronic joint pain Intake Note: Patient last seen 08/11/23 by Nathaniel, presents today for follow up and test results. Reports popping in R foot/ankle when walking to the point where she almost falls. Marker Machine Required: No Accompanied by: Self / Same As Patient Allergies No Known Allergies Allergy (Verified 09/15/23 14:36) HPI HPI Comments History of Present Illness Details Ms. Kiarra Martin, is a 57-year-old female who returns follow-up to review dianostics of initial evaluation of joint pain with mildly elevated CRP, negative rheumatoid factor negative CCP and ESR. She continues with much the same complaints of joint pain outlined below. Initial History Ms. Kiarra Martin, is a 57-year-old female was referred by her primary care for evaluation of joint pain with mildly elevated CRP, negative rheumatoid factor negative CCP and ESR. The patient reports that she has had joint pain for the last 10 years. The pain is more dominant in her neck, shoulders, knees, and ankles. She reports that her hands feel swollen in the mornings, but denies joint swelling tenderness and redness. The swelling in her hands usually resolves by the end of the day or as the day progresses but it never lasts more than 2 days. She reports that she also has a lot of tension in her neck. Her joint pain is his helped by Motrin which she takes daily but sometimes is afraid to take it because it bothers her stomach. She has been taking Motrin for years. She has had a steroid injection in her left 3rd flexor tendon for trigger finger and that has been resolved for years now. She has gained about 40 lb in recent years. She reports having insomnia from over thinking which prevents her from going to sleep. She reports that she feels anxious and highly stressed. She also reports that she was seeing a therapist but is not currently seeing a therapist. She takes Ambien occasionally to help with sleep, melatonin was not effective. She had a colonoscopy 49 years old, denies personal history of cancer, is prediabetic and is receiving eye drops for cataract. With regards connective tissue disease and inflammatory process, patient denies Raynaud's phenomenon, butterfly rash on face or other rashes; denies photosensitivity - getting sick or developing a rash from being out in the sun; denies blood or froth in urine; patient denies hx of SOB, chest pain. Patient denies hx of Carditis or Pleuritis. Patient denies any history of DVT/PE. The patient reports never have had to take aspirin or a blood thinner during the successful pregnancies. Denies fevers, excessive fatigue, unexplained weight-loss, Denies: thinning hair or hair loss, hx of rashes; Denies: dry, itchy eyes, red burning eyes needing steroids to treat; dry mouth, mouth sores or ulcers; nose bleed; ringing in the ear, Denies abdominal pain, blood or mucous in stool; nausea, vomiting , difficulty swallowing, heartburn. Denies morning stiffness lasting more than 40 mins. [facility] Medical History (Updated 09/19/23 @ 16:12 by Becky Armstrong [facility]) Primary osteoarthritis of midfoot Osteoarthritis of midfoot Elevated uric acid in blood Chronic ankle pain, bilateral Bilateral hand pain Knee pain, bilateral Muscle tension pain Muscle tightness Pain in joint involving multiple sites Elevated C-reactive protein (CRP) Chronic joint pain Arthritis Insomnia High blood pressure Surgical History Hx of wisdom tooth extraction Hx of tubal ligation Hx of hand surgery Family History Family/Other Cancer Other Arthritis Social History Household Members: Family Alcohol intake: never Patient Tobacco Use Status: Never used Tobacco Current occupational status: employed 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 Reproductive History Menstrual Age of Menarche: 13 Physical Exam Vital Signs: Last Vital Signs Temp 97.7 F 09/15/23 14:35 Pulse 83 09/15/23 14:35 BP 132/76 09/15/23 14:35 Pulse Ox 97 09/15/23 14:35 Oxygen Delivery Method Room Air 09/15/23 14:35 BMI result Body Mass Index 46.3 APPEARANCE: Patient in no acute distress HEART:? Regular rhythm, S1-S2 heard, no murmurs, rubs or gallops. LUNG:? Clear to percussion and auscultation EXTREMITIES:? No edema, no calf tenderness, normal peripheral pulses. NEURO:? Oriented and alert x3.? No focal weakness.? Reflexes symmetric.? Gait normal. JOINT EXAM: Hands:.? Normal pain-free range of motion without tenderness, swelling, increased warmth or erythema. Able to make a full fist and has a good sweeper driver strength. Thicken flexor tendon left 3rd with folding. Patient reports the skin deformity was a result of the steroid injection Wrists:.? Normal pain-free range of motion without tenderness, swelling, increased warmth or erythema. proximal enlarged fatty area on forearm, likely fatty deposits..family trait per patient Elbows:. Normal pain-free range of motion without tenderness, swelling, increased warmth or erythema. tenderpoints to bilateral lateral epicondyles Shoulders:.?? RIGHT: Full range of motion without pain. No tenderness, weakness, swelling, increased warmth or erythema. LEFT: Decreased range of motion with pain in shoulder joint, +empty can test.. some tenderness to palpation at shoulder joint and weakness (2/5), but no swelling, increased warmth or erythema. Hips:.? Full range of motion without pain. Hip bursa:.? No tenderness. Knees:.?? Normal pain-free range of motion without tenderness, swelling, increased warmth or erythema.? There is no effusion or crepitation Ankles:.? Normal pain-free range of motion swelling, increased warmth or erythema. tenderness to palpation Feet:.? Normal pain-free range of motion without swelling, increased warmth or erythema. tenderness with squeeze test across MTP, pes planus bilateral Tender points:? No Tenderness to digital palpation at the occiput, second rib, lateral epicondyle, knees. No tenderness to greater trochanter and gluteal area bilaterally. Results Reviewed Results Reviewed: [address] [address] XRay Report Signed Patient: Isha Conroy MR#: [id number] : 1965 Acct:[id number] Age/Sex: 57 / F ADM Date: 08/22/23 Loc: HO.XRAY Attending Dr: Becky Armstrong [facility] Ordering Physician: [facility]y [facility] Date of Service: 08/22/23 Procedure(s): XR knee RT 3V Accession Number(s): [id number] cc: Becky Armstrong~ EXAMINATION: XR KNEE, RIGHT CLINICAL INFORMATION: Elevated C-reactive protein level. COMPARISON: Prior radiographs dated 01/11/2018. TECHNIQUE: AP, lateral and sunrise views of the right knee are submitted. FINDINGS: Bony alignment and mineralization are normal. The lateral, medial and patellofemoral joint space compartments are well-maintained. There is moderate peripheral osteophyte formation of the medial and patellofemoral compartments. No acute fracture, dislocation or joint effusion is seen. There is a Ellen-Stieda fragment seen adjacent to the medial femoral condyle, suggesting a prior MCL injury. There is no foreign body. XR/XR knee RT 3V IMPRESSION: 1. There is mild osteoarthritic change of the medial and patellofemoral joint space compartments of the right knee, with peripheral osteophyte formation. 2. No acute fracture, dislocation or joint effusion is seen. 3. A Ellen-Stieda fragment is seen adjacent to the medial femoral condyle, suggesting an old, healed MCL injury. EXAMINATION: XR KNEE, LEFT CLINICAL INFORMATION: Elevated C-reactive protein level. COMPARISON: Prior radiographs dated 04/27/2017. TECHNIQUE: AP, lateral and sunrise views of the left knee are submitted. FINDINGS: Bony alignment and mineralization are normal. The lateral, medial and patellofemoral joint space compartments are well-maintained. There is mild to moderate tricompartment peripheral osteophyte formation. No fracture, dislocation or joint effusion is seen. There is no foreign body. There is a stable 1.1 cm degenerative calcifications in the posterior soft tissues, unchanged from 04/27/2017. IMPRESSION: 1. There is mild tricompartment osteoarthritic change of the left knee, with peripheral osteophyte formation. 2. No acute fracture, dislocation joint effusion is seen. EXAMINATION: XR HAND, RIGHT CLINICAL INFORMATION: Elevated C-reactive protein level. COMPARISON: Radiographs dated 10/07/2021. TECHNIQUE: PA, lateral, and oblique views of the right hand. FINDINGS: Bony alignment and mineralization are normal. There is a slight ulnar minus variance. No fracture or dislocation is seen. There is mild osteoarthritic change of the first carpometacarpal joint. There is no abnormal bone erosion. The proximal and distal carpal rows are intact. No focal soft tissue swelling, gas or foreign body is seen. XR/XR hand LT min 3V IMPRESSION: 1. There is mild osteoarthritic change of the right first carpometacarpal joint. 2. No fracture or dislocation is seen. 3. There is no abnormal bone erosion. EXAMINATION: XR HAND, LEFT CLINICAL INFORMATION: Elevated C-reactive protein level. COMPARISON: None available. TECHNIQUE: PA, lateral, and oblique views of the left hand. FINDINGS: Bony alignment and mineralization are normal. There is a neutral ulnar variance. No fracture or dislocation is seen. There is mild osteoarthritic change of the interphalangeal joint of the thumb, the second distal interphalangeal joint and the first carpometacarpal joint. There is no abnormal bone erosion. The proximal and distal carpal rows are intact. There is no focal soft tissue swelling, gas or foreign body. IMPRESSION: 1. There is mild osteoarthritic change of the interphalangeal joint of the left thumb, the left second distal interphalangeal joint and the left first carpometacarpal joint. 2. No fracture or dislocation is seen. 3. There is no abnormal bone erosion. EXAMINATION: XR FOOT, RIGHT CLINICAL INFORMATION: Elevated C-reactive protein level. COMPARISON: None available. TECHNIQUE: AP, lateral, and oblique views of the right foot. FINDINGS: Bony mineralization is normal. There is a mild hallux valgus and metatarsus adductus configuration. There is moderate bunion formation of the first metatarsal head. No fracture, dislocation or right ankle joint effusion is seen. Boehler's angle is normal. There are moderate posterior and plantar calcaneal spurs. There are degenerative changes of the dorsal midfoot. No focal soft tissue swelling, gas or foreign body is seen. XR/XR foot RT min 3V IMPRESSION: 1. There is moderate bunion formation of the right first metatarsal head. 2. There are moderate posterior and plantar right calcaneal spurs. 3. There are degenerative changes of the dorsal right midfoot. EXAMINATION: XR FOOT, LEFT CLINICAL INFORMATION: Elevated C-reactive protein level. COMPARISON: None available. TECHNIQUE: AP, lateral, and oblique views of the left foot. FINDINGS: Bony mineralization is normal. There is a mild hallux valgus and metatarsus adductus configuration. There is moderate bunion formation of the first metatarsal head. No fracture, dislocation or left ankle joint effusion is seen. Boehler's angle is normal. There are small posterior and moderate plantar calcaneal spurs. There are degenerative changes of the dorsal midfoot. No focal soft tissue swelling, gas or foreign body is seen. IMPRESSION: 1. There is moderate bunion formation of the left first metatarsal head. 2. There are small posterior and moderate plantar left calcaneal spurs. 3. There are degenerative changes of the dorsal left midfoot. Laboratory Tests 08/22/23 15:52 WBC 6.7 RBC 4.91 Hgb 14.3 ESR 7 Uric Acid 6.9 H C-Reactive Protein 0.95 H HLA-B27 Negative Assessment & Plan Assessment & Plan (1) Pain in joint involving multiple sites: Code(s): M25.50 - Pain in unspecified joint (2) Elevated C-reactive protein (CRP): Code(s): R79.82 - Elevated C-reactive protein (CRP) (3) Knee pain, bilateral: Code(s): M25.561 - Pain in right knee; M25.562 - Pain in left knee Qualifiers: Chronicity: chronic Qualified Code(s): M25.561 - Pain in right knee; M25.562 - Pain in left knee; G89.29 - Other chronic pain (4) Bilateral hand pain: Code(s): M79.641 - Pain in right hand; M79.642 - Pain in left hand (5) Chronic ankle pain, bilateral: Code(s): M25.571 - Pain in right ankle and joints of right foot; M25.572 - Pain in left ankle and joints of left foot; G89.29 - Other chronic pain (6) Elevated uric acid in blood: Code(s): E79.0 - Hyperuricemia without signs of inflammatory arthritis and tophaceous disease (7) Primary osteoarthritis of midfoot: Code(s): M19.079 - Primary osteoarthritis, unspecified ankle and foot Plan Ms. Conroy returns for follow-up of labs and diagnostics. She has elevated Uric acid levels. Based on her description of hand swollen, I suspects she may have had some gout episodes. I recommend that the patient calls the office if this happens again. Xrays shows that she also has midfoot arthritis bilaterally. I encouraged the patient to be consistent in wearing shoes with arch support. She does find that her feet are less sore and painful when she does. She would also benefit from weightloss as this can reduce her knee and foot pain. Patient will call the office when needed. Initial Assessment #Multiple joint pain (Knees, Hands,Ankles)/elevated CRP: Ms. Conroy 57-year-old female was evaluated today for multiple joint pain and elevated CRP. She has had negative serology for rheumatoid factor, CCP, ESR and JANKI. After careful initial evaluation and review of medical records, diagnostics, and physical examination, I do not think there is a connective tissue disease or inflammatory process that underlies her symptoms. It is reasonable to assess that the elevated CRP can be attributed to obesity. The patient does have onset of osteoarthritis, which also is exacerbated by her increased weight gain. Patient reports that her hands can feel puffy (see HPI) but denies joint swelling, redness, tenderness and warmth to the joints. A October 2021 x-rays that show early osteoarthritis to right hand. I will obtain rheumatology panel for further evaluation and x-rays to assess the extent of her osteoarthritis. Patient will continue with Motrin as she finds this effective for her joint pain. She knows to take it with food. 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 I have recommended that she adopt healthy diet and increase her activity level with mild exercise and mild muscle strengthening. #Muscle/Tension/Tight: On examination patient has severe muscle tightness and tension to her neck and her shoulders such that is hard to the touch and she finds it to be very tender. I think she can benefit from massage sessions. She did state that she has had PT for her left shoulder and the therapist did recommend that she gets massage to help relax her muscles. I will give her a prescription for massage session. #Left Shoulder Pain:Patient has an appointment to see Orthopedic for her shoulder. She reports that she has had a prior cortisone injection from Orthopedics for the shoulder. # Insomnia/Depression: It is clear that the patient she has depression and anxiety which is affecting her sleep. She was very teary-eyed during examination. She finds that she cannot go to sleep because her mind is in overdrive. She was prescribed zolpidem and she still trying to figure out the best time to take it so it can be effective for her. She has had therapy in the past which she states did help her but she has not seen a therapist in over a year she had a falling out with her therapist I have encouraged her to talk with her PCP about a recommendation and referral for therapist. I have made some recommendations such as herbal teas such as chamomile Tea, ambient noises, and personal affirmations. Patient agrees to try these. end of initial assessment If there if there is any need for an earlier follow-up patient will call the office Coding Level of Care Code Est Pt Level 3 (78049) Diagnoses Pain in joint involving multiple sites M25.50 Elevated C-reactive protein (CRP) R79.82 Chronic pain of both knees M25.561; M25.562; G89.29 Chronicity: chronic Bilateral hand pain M79.641; M79.642 Chronic ankle pain, bilateral M25.571; M25.572; G89.29 Elevated uric acid in blood E79.0 Primary osteoarthritis of midfoot M19.079
[2023-09-15 14:35] VITALS: BP 132/76; PULSE 83; TEMP 36.5; O2SAT 97; BMI 46.3
== END 2023-09-15 15:10 | disposition home or self-care (01) ==
PROVIDERS: PCP Internal Medicine; Visit Provider Nurse Practitioner Family
DX: M25.50 Pain in unspecified joint (principal); R79.82 Elevated C-reactive protein (CRP); M25.561 Pain in right knee; M25.562 Pain in left knee; G89.29 Other chronic pain; M79.641 Pain in right hand; M79.642 Pain in left hand; M25.571 Pain in right ankle and joints of right foot; M25.572 Pain in left ankle and joints of left foot; E79.0 Hyperuricemia without signs of inflammatory arthritis and tophaceous disease; M19.079 Primary osteoarthritis, unspecified ankle and foot
CPT/HCPCS: 99213

== ENCOUNTER → 2023-09-15 14:22 | Outpatient (BNVA) | payer MEDICAID, SELFPAY | PROVIDERS: PCP Internal Medicine; Visit Provider Nurse Practitioner Family | DX: M25.50 Pain in unspecified joint (principal); M25.561 Pain in right knee; M25.562 Pain in left knee; M79.641 Pain in right hand; M79.642 Pain in left hand; M25.571 Pain in right ankle and joints of right foot; M25.572 Pain in left ankle and joints of left foot; M19.079 Primary osteoarthritis, unspecified ankle and foot; G89.29 Other chronic pain; R79.82 Elevated C-reactive protein (CRP); E79.0 Hyperuricemia without signs of inflammatory arthritis and tophaceous disease | CPT/HCPCS: 99212 ==

== ENCOUNTER 2024-01-04 15:10 | Outpatient (REF) | payer MEDICAID, SELFPAY ==
[2024-01-04 18:21] LABS: Appearance Urine Turbid; Glucose Urine UA Negative (Negative); Leukocyte Esterase Urine Small (1+) (Negative); Nitrite Urine Negative (Negative); PH 5.5 (5.0-9.0); Specific Gravity - Urine >= 1.030 (1.005-1.025); UMIC TRIGGER UACC YES; Urine Blood Negative (Negative); Urine Ketones Negative (Negative); Urine Protein Trace mg/dL (Neg-Trace)
[2024-01-04 18:26] LABS: Color Urine Yellow
[2024-01-04 18:38] LABS: Bacteria Urine 2+ (None Seen); Hyaline Casts Urine 0-2 /LPF (0-2); RBC Urine 0-2 /HPF (0-2); UACC Culture Trigger YES; WBC Urine 0-5 /HPF (0-5)
[2024-01-04 18:51] LABS: Alanine Aminotransferase 14 U/L (0-31); Albumin Level 3.9 g/dL (3.5-5.0); Alkaline Phosphatase 67 U/L (39-117); Anion Gap 14 (12-20); Aspartate Amino Transferase 17 U/L (5-31); Bilirubin Total 1.1 mg/dL (0.0-1.0); Blood Urea Nitrogen 13 mg/dL (9-16); Calcium 8.7 mg/dL (8.4-10.2); Carbon Dioxide 25 mmol/L (22-29); Chloride 108 mmol/L (96-108); Estimated Glomerular Filt Rate > 60; Glucose Random 68 mg/dL (60-115); Potassium 3.6 mmol/L (3.3-5.1); Sodium 143 mmol/L (135-145); Total Protein 7.1 g/dL (6.5-8.0)
== END 2024-01-04 15:11 | disposition home or self-care (01) ==
LOC: HO.CHCLDS 15:10
PROVIDERS: Visit Provider Internal Medicine
DX: R10.32 Left lower quadrant pain (principal); K59.09 Other constipation
CPT/HCPCS: 36415; 80053; 81001; 87086

== ENCOUNTER 2024-08-16 13:55 | Outpatient (REF) | payer MEDICAID, SELFPAY ==
[2024-08-16 16:37] LABS: Alanine Aminotransferase 17 U/L (0-31); Alkaline Phosphatase 68 U/L (39-117); Anion Gap 11 (12-20); Aspartate Amino Transferase 25 U/L (5-31); Bilirubin Direct 0.3 mg/dL (0.0-0.5); Bilirubin Total 0.8 mg/dL (0.0-1.0); Blood Urea Nitrogen 13 mg/dL (9-16); Calcium 9.1 mg/dL (8.4-10.2); Carbon Dioxide 27 mmol/L (22-29); Chloride 107 mmol/L (96-108); Cholesterol 152 mg/dL (<200); Estimated Glomerular Filt Rate > 60; Glucose Random 91 mg/dL (60-115); HDL Cholesterol 37 mg/dL (>40); LDL Cholesterol Calculated 94 mg/dL (<100); Potassium 3.8 mmol/L (3.3-5.1); Sodium 141 mmol/L (135-145); Total Protein 7.3 g/dL (6.5-8.0); Triglycerides 106 mg/dL (<150)
[2024-08-17 08:00] LABS: Syphilis Screen Reactive (Nonreactive)
[2024-08-17 08:58] LABS: HBS Num1 117.17 mIU/mL (0-7.99); HBc Num1 0.14 S/CO (0.00-0.79); HIV AB/AG Nonreactive (Nonreactive); HIV Num 1 0.04 S/CO (0.00-0.99); Hepatitis B Core Antibody Nonreactive (Nonreactive); Hepatitis B Surface Antigen Negative (Negative); ~HepC Num1 0.13 S/CO (0.00-0.79); ~Hepatitis B Surface Antibody REACTIVE (Nonreactive); ~Hepatitis C Antibody Nonreactive (Nonreactive)
[2024-08-23 14:21] LABS: RPR Quantitative Non-Reactive (Nonreactive)
[2024-08-23 14:22] LABS: T.Pallidum Particle Agg Test Reactive (Nonreactive)
== END 2024-08-16 13:56 | disposition home or self-care (01) ==
LOC: HO.HHCL 13:55
PROVIDERS: Student in an Organized Health Care Education/Training Program; Visit Provider Advanced Practice Midwife
DX: Z11.3 Encounter for screening for infections with a predominantly sexual mode of transmission (principal); I10 Essential (primary) hypertension
CPT/HCPCS: 36415; 80048; 80061; 80076; 86592; 86704; 86706; 86780; 86803; 87340; 87389

== ENCOUNTER 2024-08-16 16:51 | Outpatient (REF) | payer MEDICAID, SELFPAY ==
[2024-08-17 09:26] LABS: HPV 16,18/45 See PAP report
[2024-08-20 15:19] LABS: C. trachomatis RNA TMA NOT DETECTED (NOT DETECTED); N. gonorrhoeae RNA TMA NOT DETECTED (NOT DETECTED); Trichomonas (NAAT) NOT DETECTED (NOT DETECTED)
== END 2024-08-16 16:52 | disposition home or self-care (01) ==
LOC: HO.HHCLNP 16:51
PROVIDERS: Visit Provider Advanced Practice Midwife
DX: Z12.4 Encounter for screening for malignant neoplasm of cervix (principal); Z11.3 Encounter for screening for infections with a predominantly sexual mode of transmission; R87.810 Cervical high risk human papillomavirus (HPV) DNA test positive
CPT/HCPCS: 87491; 87591; 87626; 87661; 88175